=== PATIENT | female | born 1995 | race Caucasian/White ===

== ENCOUNTER 2019-04-02 13:30 | Outpatient (REF) | payer BC, SELFPAY ==
[2019-04-02 21:09] LABS: Abs Immature Grans 0.01 k/cumm (0.0-0.09); Absolute Basophil Count 0.04 k/cumm (0.0-0.2); Absolute Eosinophil Count 0.05 k/cumm (0.0-0.7); Absolute Lymphocyte Count 1.84 k/cumm (1.2-3.4); Absolute Monocyte Count 0.64 k/cumm (0.11-0.7); Absolute Neutrophil Count 5.34 k/cumm (1.2-6.7); Basophils % 0.5; Eosinophils % 0.6; HCT 40.4 % (36.0-46.0); HGB 13.7 g/dL (12.0-15.5); Immature Grans % 0.1; Lymphocytes % 23.2; Mean Corp. HGB Concentration 33.9 g/dL (32.0-36.0); Mean Corpuscular Volume 91.4 fL (80-95); Mean Platelet Volume 10.4 fL (8.0-11.0); Monocytes % 8.1; Neutrophils % 67.5; Platelet Count 321 x1000/uL (130-400); RBC 4.42 m/cumm (4.00-5.20); RBC Distribution Width 11.6 % (11.7-14.6); White Blood Cell Count 7.92 k/cumm (4.4-10.8)
[2019-04-02 21:51] LABS: Iron 128 ug/dL (50-175); Total Iron Binding Capacity 379 ug/dL (250-450); Transferrin Sat 34 % (15-50)
[2019-04-02 22:13] LABS: ESR 7 mm/hr (0-20)
[2019-04-02 22:22] LABS: TSH (W/Ref FT4) 0.66 uIU/mL (0.36-3.74); Vitamin B12 427 pg/mL (193-986)
[2019-04-05 15:36] LABS: ANA Interpretation Negative (NEGAT)
== END 2019-04-02 13:50 ==
LOC: NCHCN 13:30
PROVIDERS: PCP Nurse Practitioner Family; Visit Provider Nurse Practitioner Family
DX: Z00.00 Encounter for general adult medical examination without abnormal findings (principal); R20.8 Other disturbances of skin sensation; L70.9 Acne, unspecified; R41.3 Other amnesia; G43.909 Migraine, unspecified, not intractable, without status migrainosus; J30.2 Other seasonal allergic rhinitis; K58.9 Irritable bowel syndrome, unspecified
CPT/HCPCS: 85652; 82607; 83540; 83550; 84443; 85025; 86038

== ENCOUNTER 2020-03-24 16:08 | Outpatient (REF) | payer BC, SELFPAY ==
--- NOTE | 2020-03-24 14:45 | PAPFT_PTH ---
PATIENT: Kathy Rivera LOC: [facility] U#:[id number] AGE/SX: 24/F ROOM: RE03/24/[address]: JESSICA Lewis : 1995 BED: DIS: 03/24/2020 SPEC #: [id number] RECD: 03/24/20 17:30 STATUS: OBIE REQ #: [id number] MADINA: 03/24/20 14:[address]: Ny Dinh DEPT: [facility] Cytology RECD BY: Aracely Burr ENTERED: 03/24/20 17:31 SP TYPE: PAPFT OTHR DR: Haley Matthews Tissues: 1 - CX/ENDOCX FOR PAP SMEARS Procedures: PAP THIN PREP/[facility] Screening Comments: [id number]
[2020-03-27 15:11] LABS: Chlamydia Result Negative (Negative); GC Result Negative (Negative)
== END 2020-03-24 16:28 ==
LOC: LBN 16:08
PROVIDERS: PCP Nurse Practitioner Family; Visit Provider Nurse Practitioner Family
DX: Z12.4 Encounter for screening for malignant neoplasm of cervix (principal); Z87.42 Personal history of other diseases of the female genital tract; Z11.3 Encounter for screening for infections with a predominantly sexual mode of transmission
CPT/HCPCS: 87491; 87591; 88142

== ENCOUNTER 2020-04-28 10:16 | Outpatient (CLI) | payer BC, SELFPAY ==
[2020-04-28 17:40] LABS: TSH (W/Ref FT4) 0.55 uIU/mL (0.36-3.74)
== END 2020-04-28 10:36 ==
PROVIDERS: PCP Nurse Practitioner Family; Visit Provider Obstetrics & Gynecology
DX: Z31.69 Encounter for other general counseling and advice on procreation (principal); Z31.41 Encounter for fertility testing
CPT/HCPCS: 36415; 84443

== ENCOUNTER 2020-05-15 12:00 | Outpatient (CLI) | payer BC, SELFPAY ==
[2020-05-16 23:05] LABS: Patient Race White; SARS-CoV-2 RNA Undetected (Undetected); SARS-CoV-2 Specimen Source Nasal
== END 2020-05-15 12:20 ==
PROVIDERS: PCP Nurse Practitioner Family; Visit Provider Family Medicine
DX: Z20.828 Contact with and (suspected) exposure to other viral communicable diseases (principal)
CPT/HCPCS: U0003

== ENCOUNTER 2020-07-27 02:49 | Outpatient (CLI) | payer BC, SELFPAY ==
[2020-07-27 15:15] LABS: Abs Immature Grans 0.04 10^3/uL (0.0-0.06); Absolute Basophil Count 0.05 10^3/uL (0.0-0.2); Absolute Eosinophil Count 0.05 10^3/uL (0.0-0.7); Absolute Lymphocyte Count 1.72 10^3/uL (1.2-3.4); Absolute Monocyte Count 0.68 10^3/uL (0.1-0.8); Basophils % 0.5; Eosinophils % 0.5; HCT 35.3 % (36.0-46.0); HGB 12.6 g/dL (11.2-15.7); Immature Grans % 0.4; Lymphocytes % 15.7; MCH 31.7 pg (27.0-33.0); MCHC 35.7 % (32.0-36.0); MCV 88.9 fL (80-95); MPV 9.7 fL (8.0-11.0); Monocytes % 6.2; Neutrophils % 76.7; Nucleated RBC 0 %; Platelet Count 284 10^3/uL (130-400); RBC 3.97 10^6/uL (3.93-5.22); RDW 11.2 % (11.7-14.6); RDW-SD 36.3 fL; WBC 10.97 10^3/uL (4.4-10.8)
[2020-07-27 15:24] LABS: Absolute Neutrophil Count 8.41 10^3/uL (1.2-6.7)
[2020-07-27 15:47] LABS: TSH (W/Ref FT4) 0.42 uIU/mL (0.36-3.74)
[2020-07-27 16:16] LABS: Kit/Specimen SENT
[2020-07-27 17:23] LABS: *AMPHETAMINES SCREEN URINE Negative (Negative); *BARBITURATES SCREEN URINE Negative (Negative); *BENZODIAZEPINES SCREEN URINE Negative (Negative); Cannabinoids THC Negative (Negative); Cocaine Screen,Urine Negative (Negative); METHADONE URINE SCREEN Negative (Negative); OPIATES URINE SCREEN Negative (Negative)
[2020-07-27 17:27] LABS: Tricyclic Antidepressants Negative (Negative)
[2020-07-28 09:26] LABS: Rubella IgG Ab (UVM) Positive (See Note)
[2020-07-28 10:32] LABS: Hepatitis B Surface Ag Negative (Negative)
[2020-07-28 10:43] LABS: Hepatitis C Ab w Rflx HCV PCR Negative (Negative)
[2020-07-28 11:24] LABS: HIV-1/2 Ag & Ab Screen Negative (Negative)
[2020-07-28 11:42] LABS: Varicella IgG Antibody Equivocal (See Note)
[2020-07-28 16:25] LABS: Chlamydia Result Negative (Negative); GC Result Negative (Negative)
[2020-07-29 11:06] LABS: Syphilis Total Ab w/Reflex Nonreactive (Nonreactive)
[2020-08-02 09:07] LABS: Buprenorphine Negative ng/mL (Cutoff: 5.0); Norbuprenorphine Negative ng/mL (Cutoff: 2.5)
[2020-08-02 13:57] LABS: Specimen WB Whole Blood
[2020-08-03 09:58] LABS: Result Summary NEGATIVE; Specimen WB Whole Blood
== END 2020-07-27 02:50 | disposition home or self-care (01) ==
PROVIDERS: PCP Nurse Practitioner Family; Visit Provider Advanced Practice Midwife
DX: Z34.91 Encounter for supervision of normal pregnancy, unspecified, first trimester (principal); Z36.89 Encounter for other specified antenatal screening; Z11.3 Encounter for screening for infections with a predominantly sexual mode of transmission; Z11.4 Encounter for screening for human immunodeficiency virus [HIV]; Z11.59 Encounter for screening for other viral diseases; Z01.84 Encounter for antibody response examination; Z3A.11 11 weeks gestation of pregnancy
CPT/HCPCS: 36415; 80307; 81329; 86787; 86803; 86850; 86900; 86901; 87077; 87340; 87389; 87491; 87591; 81220; 84443; 85025; 86762; 86780; 87086; 87186

== ENCOUNTER 2020-09-22 16:50 | Outpatient (REF) | payer BC, SELFPAY | END 2020-09-22 16:51 | disposition home or self-care (01) | LOC: LBN 16:50 | PROVIDERS: PCP Nurse Practitioner Family; Visit Provider Advanced Practice Midwife | DX: Z34.92 Encounter for supervision of normal pregnancy, unspecified, second trimester (principal); Z87.440 Personal history of urinary (tract) infections | CPT/HCPCS: 87086 ==

== ENCOUNTER 2020-10-20 16:00 | Outpatient (REF) | payer BC, SELFPAY | END 2020-10-20 16:01 | disposition home or self-care (01) | LOC: LBN 16:00 | PROVIDERS: PCP Nurse Practitioner Family; Visit Provider Advanced Practice Midwife | DX: Z87.440 Personal history of urinary (tract) infections (principal); Z34.92 Encounter for supervision of normal pregnancy, unspecified, second trimester | CPT/HCPCS: 87086 ==

== ENCOUNTER 2020-11-17 01:04 | Outpatient (CLI) | payer BC, SELFPAY ==
[2020-11-17 14:18] LABS: Glucose,1 Hr (Glucola) 114 mg/dL (80-140)
[2020-11-17 14:23] LABS: HCT 30.5 % (36.0-46.0); HGB 10.8 g/dL (11.2-15.7); MCH 31.5 pg (27.0-33.0); MCHC 35.4 % (32.0-36.0); MCV 88.9 fL (80-95); MPV 9.1 fL (8.0-11.0); Platelet Count 275 10^3/uL (130-400); RBC 3.43 10^6/uL (3.93-5.22); RDW 11.2 % (11.7-14.6); RDW-SD 36.1 fL; WBC 9.55 10^3/uL (4.4-10.8)
== END 2020-11-17 01:05 | disposition home or self-care (01) ==
LOC: LBO 01:04
PROVIDERS: PCP Nurse Practitioner Family; Visit Provider Advanced Practice Midwife
DX: Z34.92 Encounter for supervision of normal pregnancy, unspecified, second trimester (principal); Z3A.27 27 weeks gestation of pregnancy
CPT/HCPCS: 36415; 82950; 85027

== ENCOUNTER 2021-01-12 17:52 | Outpatient (REF) | payer BC, SELFPAY ==
[2021-01-12 19:39] LABS: *AMPHETAMINES SCREEN URINE Negative (Negative); *BARBITURATES SCREEN URINE Negative (Negative); *BENZODIAZEPINES SCREEN URINE Negative (Negative); Cannabinoids THC Negative (Negative); Cocaine Screen,Urine Negative (Negative); METHADONE URINE SCREEN Negative (Negative); OPIATES URINE SCREEN Negative (Negative)
[2021-01-12 19:41] LABS: Tricyclic Antidepressants Negative (Negative)
[2021-01-18 10:11] LABS: Buprenorphine Negative ng/mL (Cutoff: 5.0)
== END 2021-01-12 17:53 | disposition home or self-care (01) ==
LOC: LBN 17:52
PROVIDERS: PCP Nurse Practitioner Family; Visit Provider Advanced Practice Midwife
DX: Z34.93 Encounter for supervision of normal pregnancy, unspecified, third trimester (principal); Z3A.35 35 weeks gestation of pregnancy
CPT/HCPCS: 80307

== ENCOUNTER 2021-01-19 15:15 | Outpatient (CLI) | payer BC, SELFPAY ==
[2021-01-19 15:29] VITALS: BP 104/60; PULSE 58; RESP 16; TEMP 36.8
[2021-01-19 15:31] VITALS: BP 104/60; PULSE 58
[2021-01-19 15:55] LABS: COMMENT (LAB VIEW ONLY) 19.69 mg/dL; PROTEIN < 6.0 mg/dL
[2021-01-19 16:11] VITALS: BP 104/60; PULSE 58; TEMP 36.8
[2021-01-19 16:29] VITALS: BP 104/60; PULSE 58; TEMP 36.8
--- NOTE | 2021-01-19 16:29 | W.OBNST ---
Date of service: 01/19/21 Time of Service: 16:29 NST Evaluation Reason for NST Reasons for Nonstress Test: DECREASED MOVEMENT Gestational Age Gestational Age in Weeks and Days: 36 Weeks and 4Days Test and Monitor Explained Test/Monitor Explained: Test Explained, Monitor Explained and Patient Verbalized Understanding Vital Signs Blood Pressure: 104/60 Pulse: 58 Temperature: 98.2 F Urine Results Urine Protein: Negative Urine Ketones: Negative Urine Glucose: Negative Urine Blood: Negative NST Information Date on Monitor: 01/19/21 Time on Monitor: 15:24 Date off Monitor: 01/19/21 Time off Monitor: 15:58 Total Time on Monitor: 34 NST Interventions: None NST Evaluation Patient States Movement: Present FHR Baseline: 130 Variability: Moderate 6-25 bpm Accelerations: 15x15 Decelerations: None NST Results: Reactive Note NST Note Note: BP was 104/60, urine negative for protein NST Reviewed and Verified by: Dorys Ramirez
== END 2021-01-19 16:19 | disposition home or self-care (01) ==
LOC: BCD 15:16 → OBS 15:22
PROVIDERS: Advanced Practice Midwife; PCP Nurse Practitioner Family; Visit Provider Advanced Practice Midwife
DX: O16.3 Unspecified maternal hypertension, third trimester (principal); O36.8130 Decreased fetal movements, third trimester, not applicable or unspecified; Z3A.36 36 weeks gestation of pregnancy; Z36.85 Encounter for antenatal screening for Streptococcus B
CPT/HCPCS: 59025; 82565; 84156; 87081

== ENCOUNTER 2021-01-24 16:42 | Outpatient (REF) | payer BC, SELFPAY | END 2021-01-24 16:43 | disposition home or self-care (01) | LOC: LBN 16:42 | PROVIDERS: PCP Nurse Practitioner Family; Visit Provider Advanced Practice Midwife | DX: N89.8 Other specified noninflammatory disorders of vagina (principal) | CPT/HCPCS: 87480; 87510; 87660 ==

== ENCOUNTER 2021-02-01 01:02 | Inpatient (IN) | payer BC, SELFPAY ==
[2021-02-01] VITALS (17 sets, daily range): BP systolic 112–146; BP diastolic 59–88; PULSE 57–97; RESP 14–18; TEMP 36.4–37.2; O2SAT 97–99
[2021-02-01 02:16] LABS: Source Nasal/Nares
[2021-02-01 03:02] LABS: COVID-19 PCR Negative (Negative)
--- NOTE | 2021-02-01 07:50 | W.PM.OBHPL1 ---
Date of service: 02/01/21 Time of Service: 07:50 Assessment and Plan Assessment and plan (1) Spontaneous onset of labor: Status: Acute Assessment and plan: Admit to Center. Comfort measures. Covid- 19 test. AROM performed for moderate amount of clear fluid. Position changes for comfort and tub and nitrous oxide if desired. Anticipate . (2) Susceptible to varicella (non-immune), currently : Status: Acute OB-HPI Labor/Delivery History of Present Illness Reason for Visit: Rule out labor Chief Complaint: Uterine Contractions. DENILSON Calculator Estimated Delivery Date Method Current WG Current Estimate 02/12/21 LMP (Certain) 38w 3d Other Estimates 02/14/21 Ultrasound #1 38w 1d Comments: Kathy called at 0054 and reported strong regular contractions and bloody show. She was examined by RN and was 3 cms and posterior when she arrived. She used various positions and the tub and shower for comfort and her contractions continued through the night but did not change in intensity. At 0700, I examined her and her cervix was 6 cms with bulging membranes. She was coping well with her labor but complaining of fatigue. History of Present Expected Delivery Route/Plan - CNM FOB/ - Cm Rivera (his first child) GBS neg Interested in using water in labor and waterbirth Varicella Equivocal, offer vaccine Doesn't wish to know gender, if male will circ Specific Issues/Plan 1.Desires [place] screening, CF and SMA carrier screening, drawn 07/27/20 1a. SMA & CF screen negative; [place] results low prob x3 2. Hx migraine SHARP's, manages by decreased caffeine intake, tylenol, dark room/nap/cold compress 3. Hx IBS, no symptoms right now, no meds, avoids lactose and gluten 4. Varicellla immunity=equivocal; discuss precautions and vaccine with pt 5. UTI - e.coli- Macrobid x 10 days escribed, KAMALA on 09/22/20 no e-coli, 5/7 - neg. 6. Kathy declines covid vaccine, her is undecided. [facility] Medical History (Updated 02/01/21 @ 07:54 by Majo Robert CNM) 11 weeks gestation of Acne Cold hands Contact dermatitis IBS (irritable bowel syndrome) Memory loss Migraine aura without headache Migraine headache Migraine headache with aura Positive test Seasonal allergies Subfertility of couple Family History Father Hypertension Mother Hypertension Maternal Grandmother Endometrial cancer Paternal Grandmother Endometrial cancer Maternal Grandfather Heart disease Social History Smoking/Tobacco Use Status: Never Smoking risk assessment performed?: Yes Alcohol Intake: current Alcohol Intake frequency: a few times a month Number of Children: 0 What is your relationship status?: living with partner Panel score (0-1 are the most socially isolated patients): 1 Seatbelt use: always Do you feel safe in your relationship?: Yes Female Reproductive History Menstrual Age of Menarche: 11 Duration of menses: 3-5 days control method: none History History 1 Para 0 Hx # Term Pregnancies 0 Multiple births 0 Hx # Pregnancies 0 Ectopic pregnancies 0 AB induced 0 Hx Number of Living Children 0 AB spontaneous 0 Meds Allergies and Home Medications Allergies Allergy/AdvReac Type Severity Reaction Status Date / Time No Known Allergies Allergy Verified 01/24/21 15:27 Home Medications Medication Instructions Recorded Confirmed Type clindamycin 1 %-benzoyl peroxide 5 1 applic TP DAILY 04/22/19 02/01/21 History % topical gel loperamide 2 mg tablet 2 mg PO DAILY tab 04/22/19 02/01/21 History prenat.vits,liu,wqa-allt-acahc 1 tab PO DAILY 03/24/20 02/01/21 History blood builder 1 tab PO DAILY #30 tab 12/14/20 02/01/21 Rx Exam Physical Exam Vital signs: Temp Pulse Resp BP Pulse Ox 98.2 F 78 16 112/70 98 02/01/21 07:05 02/01/21 07:05 02/01/21 07:05 02/01/21 07:05 02/01/21 07:05 Vital Signs Reviewed: Yes Constitutional Constitutional: mild distress Detailed Labor and Delivery Exam Dilation: 6 Effacement (%): 100 station: 0 Cervix position: mid Consistency: soft Marquis Score: Cervical Points Exam 0 1 2 3 Dilation Closed 1-2cm 3-4 cm 5-6cm Effacement 0-30% 40-50% 60-70% 80% Consistency Firm Medium Soft Station -3 -2 -1,0 +1,+2 Position Posterior Mid Anterior Amniotic Membrane Status: Intact Rupture Method: Artifical Amniotic Fluid: Clear Monitor Mode: External Contraction Frequency(min): every 4 minutes Contraction Duration(sec): 60 Contraction Intensity: Moderate/Strong Fetus A Heart Rate Baseline: 135 Monitor Decelerations: None Categories: Category I Respiratory Exam Respiratory Exam: Normal Cardiovascular Exam Cardiovascular Exam: Normal Abdominal Exam Abdominal Exam: Normal Exam Exam: Normal Extremities Exam Extremities Exam: Normal Back/Spine/Pelvis Exam Back Exam: Normal Skin Exam Skin Exam: Normal Psychiatric Exam Psychiatric Exam: Normal Results Results Group Beta Strep: Negative Blood Type: O+ Rubella Status: Immune Varicella Immunity: Equivocal Risk Assessment Risk for Shoulder Dystocia Historical/Initial OB: NEGATIVE FOR: Pelvic Abnormality, Pre- BMI>30, Previous Shoulder Dystocia or Previous Macrosomia 40 Weeks: NEGATIVE FOR: EFW> 4500 gms, Maternal Weight Gain >40lb or Post Dates Increased Risk?: No Delivery Plan @ 36wks: NVD Risk for Pre-Eclampsia Daily Dose ASA Indicated: No Yes, if one or more: NEGATIVE FOR: Hx Pre-E/Gest HTN, Chronic HTN, Multiple Gestation, Pre-gestational DM, Renal Disease, Systemic Lupus or APA Syndrome Yes, if 2 or more: POSITIVE FOR: Nulliparity; NEGATIVE FOR: Age>= 35 yrs, >10yr btwn pregnancies, BMI>30, ethinicty, Mother/Sister w/ Pre-E or Previous IUGR Risk for Post- Hemorrhage Initial: NEGATIVE FOR: Multiple Gestation, Previous PPH, Known Clotting Deficiency, Grand Multiparity or Anticoagulation At Risk?: No Risks Reviewed Risks Reviewed Upon Admission: Yes
[2021-02-01 08:00] LABS: HGB 12.2 g/dL (11.2-15.7); MCH 29.5 pg (27.0-33.0); MCHC 33.9 % (32.0-36.0); MCV 87.2 fL (80-95); MPV 9.7 fL (8.0-11.0); Platelet Count 281 10^3/uL (130-400); RBC 4.13 10^6/uL (3.93-5.22); RDW 12.8 % (11.7-14.6); RDW-SD 40.3 fL; WBC 13.71 10^3/uL (4.4-10.8)
[2021-02-01] MEDS: Oxytocin 10 UNITS/ML VIAL IM (09:35)
[2021-02-01] MEDS: Lidocaine 1% Multi-Dose 20 ML VIAL IJ (09:35)
--- NOTE | 2021-02-01 10:30 | W.OBDELIVERY ---
Date of service: 02/01/21 Time of Service: 10:30 OB Labor/ Delivery Information Baby A Delivery Delivery Method: Spontaneaous Presentation: Cephalic Vertex Position: Right Occipital Anterior Cord Description-Baby A: 3 Vessels Amniotic Fluid: Clear Estimated Blood Loss: 250 Delivery Outcome: Liveborn Providers Nurse Interactive Account Manager: Majo Robert Nurse: Hector Rojo Nurse: Joby Dunne Other: Thais SAMUEL Labor/Delivery Information Number of Babies in Womb: 1 Steroids Given: None Group Beta Strep: Negative Antibiotics Administered: No Rubella Status: Immune Blood Type: O+ Varicella Immunity: Equivocal Born En Route: No Maternal Complications: None Shoulder Dystocia: No Note: Membranes were ruptured at 6 cms and Kathy progressed rapidly to full dilationan and began pushing in the tub. FHTs 130s during first stage of labor. FHTs 130s in second stage. Second stage huddle was done. With pushing efforts, the baby began to crown but did progress to full . Kathy was moved to the bed and in hands and knees position, delivered the male infant delivered in RUDY position. Baby was placed on mother's abdomen and dried and stimulated. Spontaneous cry. Cord was clamped and cut by the baby's father. The placenta delivered spontaneously and appears to be intact with a three vessel cord. Pitocin 10 units IM was administered after delivery of the placenta. The perineum was inspected and a first degree laceration and left upper labial laceration was observed. The baby did attempt to breastfeed. After delivery, Mother and baby and father of the baby were stable and bonding well in the delivery room and there were no complications. Stages of Labor Onset of Labor Date: 01/31/21 Onset of Labor Time: 20:00 Complete Dilatation Date: 02/01/21 Complete Dilatation Time: 08:28 Labor - Stage 1 Duration: 24 hours and 0 minutes ROM Baby A: 02/01/21 Delivery Date-Baby A: 02/01/21 Infant Delivery Time-Baby A: 09:26 Labor Stage 2 Duration: 58 minutes Placenta Delivery Date-Baby A: 02/01/21 Placenta Delivery Time-Baby A: 09:34 Labor-Stage 3 Duration: 8 minutes Total Length of Labor-Baby A: 13 hours and 26 minutes Placenta Status: Delivered Baby A Infant Gender: Male Gestational Status: Early Term (37-38.6 wks) Gestational Age in Weeks/Days: 38 Weeks and 3 Days Score-1 Minute Interval(Baby A) Heart Rate-1 minute: 100 BPM or Greater Respiratory Effort- 1 minute: Spontaneous/Strong Cry Muscle Tone-1 minute: Active Movement Reflex Response-1 minute: Prompt Response Color-1 minute: Bluish Hands or Feet Total Score-1 minute: 9 Score-5 Minute Interval(Baby A) Heart Rate- 5 minute: 100 BPM or Greater Respiratory Effort-5 minute: Spontaneous/Strong Cry Muscle Tone-5 minute: Active Movement Reflex Response-5 minute: Prompt Response Color-5 minute: Bluish Hands or Feet Total Score- 5 minute: 9 Interventions Repair of Laceration Type: Perineal , Laceration Extension: First Degree . Sponge Count Correct: No Sponges Placed in Vagina , Sharp Count Correct: Yes . Laceration Repair Note: left upper labial laceration repaired with 4-0 vicryl interrupted sutures under local anesthetic.
[2021-02-01] MEDS: Acetaminophen 325 MG TAB 650 MG PO ×2 (11:42→18:13)
[2021-02-01] MEDS: Ibuprofen 600 MG TAB PO ×2 (11:43→18:12)
[2021-02-01] MEDS: Dibucaine 1% 28 GM TUBE TP (11:44)
[2021-02-02 00:05] VITALS: BP 137/84; PULSE 67; RESP 18; TEMP 36.6
[2021-02-02] MEDS: Ibuprofen 600 MG TAB PO ×2 (05:34→15:36)
[2021-02-02] MEDS: Acetaminophen 325 MG TAB 650 MG PO ×2 (05:34→15:36)
[2021-02-02 07:25] VITALS: BP 120/79; PULSE 94; RESP 16; TEMP 36.6; O2SAT 98
[2021-02-02 07:25] LABS: HCT 33.3 % (36.0-46.0); HGB 11.3 g/dL (11.2-15.7); MCH 29.5 pg (27.0-33.0); MCHC 33.9 % (32.0-36.0); MCV 86.9 fL (80-95); MPV 9.8 fL (8.0-11.0); Platelet Count 265 10^3/uL (130-400); RBC 3.83 10^6/uL (3.93-5.22); RDW 13.2 % (11.7-14.6); RDW-SD 41.4 fL; WBC 12.67 10^3/uL (4.4-10.8)
[2021-02-02] MEDS: Docusate Sodium 100 MG CAP PO (08:12)
[2021-02-02 12:20] VITALS: BP 125/82; PULSE 64; RESP 16; TEMP 36.6; O2SAT 97
--- NOTE | 2021-02-02 14:14 | DSE_ITS ---
Date of service: 02/02/21 Time of Service: 14:15 DS: Diagnosis Discharge Diagnosis (1) Susceptible to varicella (non-immune), currently : Status: Acute Asessment and Plan: offer varicella vaccine prior to discharge. (2) Term of : Status: Acute Asessment and Plan: Caring for baby independently. Pain is managed well with oral analgesics. Voiding without difficulty. well. Baby was 6-1 at with 3.8% weight loss. The managed care manager recommends an additional day of observation. Kathy feels well. A - stable mother and baby , Post day 1 P - Discharge to home tomorrow. Routine post instructions. [facility] Discharge Plan Discharge Details Reason For Visit: Rule Out Labor Admit Date/Time: 02/01/21 07:38 Admit Provider: Majo Robert Attending Provider: Majo Robert Primary Care Provider: Haley Matthews Home Meds and New Rx's Prescriptions: No Action prenat.vits,liu,ylf-wzli-hhqie Tablet 1 tab PO DAILY RF: 0 blood builder 1 tab PO DAILY Qty: 30 RF: 0 loperamide [Imodium A-D] 2 mg tablet 2 mg PO DAILY RF: 0 clindamycin-benzoyl peroxide [Benzaclin] 1-5 % gel 1 applic TP DAILY RF: 0 OB:DS Summary Summary Vaginal Delivery Method: Spontaneaous Episiotomy Description: None Laceration Description: Perineal Laceration Extension: First Degree Contraception Discussed Contraception Discussed: No, Gender-Baby A: Male weight: 6 lb 1.003 oz Status at Discharge Functional status at discharge: independent ambulation Overall status at discharge: patient is back to baseline Mental Status: mental status grossly normal Speech and Movement: speech and movement normal Mood: congruent mood Affect: normal affect Exam Physical Exam Vital signs: Temp Pulse Resp BP Pulse Ox 97.9 F 64 16 125/82 97 02/02/21 12:20 02/02/21 12:20 02/02/21 12:20 02/02/21 12:20 02/02/21 12:20 Constitutional Constitutional: no acute distress Respiratory Exam Respiratory Exam: Normal Cardiovascular Exam Cardiovascular Exam: Normal Fundal Exam Fundus: Below Umbilicus and Firm Rectal Exam Rectal Exam: Normal Extremities Exam Extremity Exam: Normal Back/Spine/Pelvis Exam Back Exam: Normal Skin Exam Skin Exam: Normal Psychiatric Exam Psychiatric Exam: Normal [facility] Medical History (Updated 02/02/21 @ 14:15 by Majo Robert CNM) 11 weeks gestation of Acne Cold hands Contact dermatitis IBS (irritable bowel syndrome) Memory loss Migraine aura without headache Migraine headache Migraine headache with aura Positive test Seasonal allergies Subfertility of couple Family History Father Hypertension Mother Hypertension Maternal Grandmother Endometrial cancer Paternal Grandmother Endometrial cancer Maternal Grandfather Heart disease Social History Smoking/Tobacco Use Status: Never Smoking risk assessment performed?: Yes Alcohol Intake: current Alcohol Intake frequency: a few times a month Number of Children: 0 What is your relationship status?: living with partner Panel score (0-1 are the most socially isolated patients): 1 Seatbelt use: always Do you feel safe in your relationship?: Yes Female Reproductive History Menstrual Age of Menarche: 11 Duration of menses: 3-5 days control method: none History History 1 Para 0 Hx # Term Pregnancies 0 Multiple births 0 Hx # Pregnancies 0 Ectopic pregnancies 0 AB induced 0 Hx Number of Living Children 0 AB spontaneous 0 DS: Data Vitals/I&O Vitals and I&O: Vital Signs Temperature 97.9 F 02/02/21 12:20 Pulse 64 02/02/21 12:20 Pulse Rhythm Regular 02/02/21 07:25 Respiratory Rate 16 02/02/21 12:20 Respiratory Effort 02/01/21 20:40 Respiratory Depth Normal 02/01/21 20:40 Respiratory Pattern Normal 02/01/21 20:40 Blood Pressure 125/82 02/02/21 12:20 Blood Pressure Mean 96 02/02/21 12:20 Pulse Oximetry 97 02/02/21 12:20 Oxygen Delivery Method Room Air 02/01/21 07:05 Oxygen Flow Rate 0 02/01/21 07:05 Pain Level 2 02/02/21 12:20 Intake & Output 02/01/21 02/02/21 02/02/21 23:59 11:59 23:59 Intake Total 1000 / 1500 Output Total 2050 / 2450 600 / 600 Balance -1050 / -950 -600 / -600 Intake: Oral 1000 / 1500 Output: Urine 2050 / 2450 600 / 600 Other: Urine Color Pale Pale Urine Appearance Clear Clear Urine Odor None Comment Patient attempted to void, was unable at this time did take shower Voiding Methods Toilet Toilet Data Completed and Pending Labs on day of discharge: Labs from last 24 hours 02/02/21 07:08 WBC 12.67 H RBC 3.83 L Hgb 11.3 Hct 33.3 L MCV 86.9 MCH 29.5 MCHC 33.9 RDW 13.2 Plt Count 265 MPV 9.8
[2021-02-02 16:45] VITALS: BP 123/80; PULSE 74; RESP 16; TEMP 36.7; O2SAT 98
[2021-02-03 00:11] VITALS: BP 128/83; PULSE 69; RESP 18; TEMP 36.7; O2SAT 98
[2021-02-03] MEDS: Ibuprofen 600 MG TAB PO (04:26)
[2021-02-03] MEDS: Acetaminophen 325 MG TAB 650 MG PO (04:27)
[2021-02-03 07:10] VITALS: BP 127/85; PULSE 82; RESP 16; TEMP 36.7; O2SAT 98
[2021-02-03] MEDS: Docusate Sodium 100 MG CAP PO (07:55)
--- NOTE | 2021-02-03 08:05 | W.PM.OBDISCH ---
Date of service: 02/03/21 Time of Service: 08:05 DS: Diagnosis Discharge Diagnosis (1) Susceptible to varicella (non-immune), currently : Start date: 02/03/21 Start time: 08:06 Status: Acute Asessment and Plan: will offer VZV vaccine prior to discharge. AROLDO (2) Term of : Start date: 02/03/21 Start time: 08:06 Status: Acute Asessment and Plan: Healthy course, will return to office in 2 weeks.KH (3) Lactating mother: Start date: 02/03/21 Start time: 08:07 Status: Acute Asessment and Plan: Feels breast feeding is going well now, has good plan for positions and latch. Has worked with Christiane AZUL and has pediatric follow up in 2 days as well as [facility] follow up in 2 weeks. Discharge Plan Disposition Patient Disposition: HOME Condition: Good Discharge Details Reason For Visit: Rule Out Labor Admit Date/Time: 02/01/21 07:38 Admit Provider: Majo Robert Attending Provider: Majo Robert Primary Care Provider: Haley Matthews Hospital Course Hospital Course: normal labor and delivery of live male. Breast feeding going well. Normal course to date. Plans progesterone only pills at 6 weeks . Home Meds and New Rx's Prescriptions: New ibuprofen 600 mg Tablet 600 mg PO Q6H PRN PRNQty: 90 RF: 0 Continued prenat.vits,liu,nvw-dqdy-nvfmn Tablet 1 tab PO DAILY RF: 0 blood builder 1 tab PO DAILY Qty: 30 RF: 0 loperamide [Imodium A-D] 2 mg tablet 2 mg PO DAILY RF: 0 clindamycin-benzoyl peroxide [Benzaclin] 1-5 % gel 1 applic TP DAILY RF: 0 Discharge Instructions Activity:: Activity as Tolerated Equipment/Supplies:: No Equipment Needed Diet:: As Tolerated Discharge Orders Discharge Orders: Discharge Order (Routine); Ordered 02/03/21 Ordered By: Majo Baez OB:DS Summary Summary Vaginal Delivery Method: Spontaneaous Episiotomy Description: None Laceration Description: Perineal Laceration Extension: First Degree Contraception Discussed Contraception Discussed: No, Gender-Baby A: Male weight: 6 lb 1.003 oz Status at Discharge Functional status at discharge: independent ambulation Overall status at discharge: patient is back to baseline Mental Status: mental status grossly normal Speech and Movement: speech and movement normal Mood: congruent mood Affect: normal affect Exam Physical Exam Vital signs: Temp Pulse Resp BP Pulse Ox 98.1 F 69 18 128/83 98 02/03/21 00:11 02/03/21 00:11 02/03/21 00:11 02/03/21 00:11 02/03/21 00:11 Vital Signs Reviewed: Yes Constitutional Constitutional: no acute distress and average body habitus HEENT Exam HEENT Exam: Normal Neck Exam Neck Exam: Not Done Breast Exam Bilateral: Breast Exam: Normal Nipple Exam: Normal Respiratory Exam Respiratory Exam: Normal Cardiovascular Exam Cardiovascular Exam: Normal Fundal Exam Fundus: Below Umbilicus and Firm Rectal Exam Rectal Exam: Not Done Exam Patient deferred: external exam Perineum: Normal Extremities Exam Extremity Exam: Normal Skin Exam Skin Exam: Normal Neurological Exam Neurological Exam: Normal Psychiatric Exam Psychiatric Exam: Normal [facility] Medical History (Updated 02/03/21 @ 08:06 by Majo Baez CNM) 11 weeks gestation of Acne Cold hands Contact dermatitis IBS (irritable bowel syndrome) Memory loss Migraine aura without headache Migraine headache Migraine headache with aura Positive test Seasonal allergies Subfertility of couple Family History Father Hypertension Mother Hypertension Maternal Grandmother Endometrial cancer Paternal Grandmother Endometrial cancer Maternal Grandfather Heart disease Social History Smoking/Tobacco Use Status: Never Smoking risk assessment performed?: Yes Alcohol Intake: current Alcohol Intake frequency: a few times a month Number of Children: 0 What is your relationship status?: living with partner Panel score (0-1 are the most socially isolated patients): 1 Seatbelt use: always Do you feel safe in your relationship?: Yes Female Reproductive History Menstrual Age of Menarche: 11 Duration of menses: 3-5 days control method: none History History 1 Para 0 Hx # Term Pregnancies 0 Multiple births 0 Hx # Pregnancies 0 Ectopic pregnancies 0 AB induced 0 Hx Number of Living Children 0 AB spontaneous 0 DS: Data Vitals/I&O Vitals and I&O: Vital Signs Temperature 98.1 F 02/03/21 00:11 Pulse 69 02/03/21 00:11 Pulse Rhythm Regular 02/03/21 00:11 Respiratory Rate 18 02/03/21 00:11 Respiratory Effort 02/01/21 20:40 Respiratory Depth Normal 02/01/21 20:40 Respiratory Pattern Normal 02/01/21 20:40 Blood Pressure 128/83 02/03/21 00:11 Blood Pressure Mean 98 02/03/21 00:11 Pulse Oximetry 98 02/03/21 00:11 Oxygen Delivery Method Room Air 02/01/21 07:05 Oxygen Flow Rate 0 02/01/21 07:05 Pain Level 4 02/03/21 04:27 Intake & Output 02/02/21 02/02/21 02/03/21 11:59 23:59 11:59 Output Total 600 / 600 Balance -600 / -600 Output: Urine 600 / 600 Other: Urine Color Pale Urine Appearance Clear Voiding Methods Toilet
== END 2021-02-03 12:05 | disposition home or self-care (01) | DRG 807 ==
PROVIDERS: Admitting Provider Advanced Practice Midwife; PCP Nurse Practitioner Family; Visit Provider Advanced Practice Midwife
DX: O99.62 Diseases of the digestive system complicating childbirth (principal); Z37.0 Single live birth; O99.354 Diseases of the nervous system complicating childbirth; O70.0 First degree perineal laceration during delivery; Z3A.38 38 weeks gestation of pregnancy; K58.9 Irritable bowel syndrome, unspecified; G43.109 Migraine with aura, not intractable, without status migrainosus; Z20.822 Contact with and (suspected) exposure to COVID-19
CPT/HCPCS: 36415; 85027; 86850; 86900; 86901; 87635; G0378; J2590; J3490

== ENCOUNTER 2022-06-28 01:19 | Outpatient (CLI) | payer BC, SELFPAY ==
[2022-06-28 16:03] LABS: Panorama Kit Sent via Fed Ex
[2022-06-28 16:06] LABS: Abs Immature Grans 0.05 10^3/uL (0.0-0.06); Absolute Eosinophil Count 0.05 10^3/uL (0.0-0.7); Absolute Lymphocyte Count 2.33 10^3/uL (1.2-3.4); Absolute Monocyte Count 0.66 10^3/uL (0.1-0.8); Basophils % 0.3; Eosinophils % 0.4; HCT 34.8 % (36.0-46.0); HGB 12.2 g/dL (11.2-15.7); Immature Grans % 0.4; MCH 30.1 pg (27.0-33.0); MCHC 35.1 % (32.0-36.0); MCV 86 fL (80-95); MPV 9.2 fL (8.0-11.0); Monocytes % 5.7; Neutrophils % 73.2; Platelet Count 337 10^3/uL (130-400); RBC 4.05 10^6/uL (3.93-5.22); RDW 11.2 % (11.7-14.6); RDW-SD 35.6 fL; WBC 11.66 10^3/uL (4.4-10.8)
[2022-06-28 16:07] LABS: Absolute Basophil Count 0.03 10^3/uL (0.0-0.2); Absolute Neutrophil Count 8.54 10^3/uL (1.2-6.7)
[2022-07-01 09:13] LABS: Hepatitis B Surface Ag Negative (Negative)
[2022-07-01 09:32] LABS: Hepatitis C Ab w Rflx HCV PCR Negative (Negative)
[2022-07-01 10:52] LABS: HIV-1/2 Ag & Ab Screen Negative (Negative)
[2022-07-01 11:08] LABS: Rubella IgG Ab (UVM) Positive (See Note); Varicella IgG Antibody Positive (See Note)
[2022-07-02 20:37] LABS: Syphilis IgG w/Reflex Nonreactive (Nonreactive)
== END 2022-06-28 01:20 | disposition home or self-care (01) ==
LOC: LBO 01:19
PROVIDERS: PCP Nurse Practitioner Family; Visit Provider Advanced Practice Midwife
DX: Z34.91 Encounter for supervision of normal pregnancy, unspecified, first trimester
CPT/HCPCS: 36415; 86787; 86803; 86850; 86900; 86901; 87340; 87389; 85025; 86762; 86780

== ENCOUNTER 2022-06-28 17:21 | Outpatient (REF) | payer BC, SELFPAY ==
[2022-07-05 10:11] LABS: Buprenorphine Negative ng/mL (Cutoff: 5.0); Norbuprenorphine Negative ng/mL (Cutoff: 2.5)
== END 2022-06-28 17:22 | disposition home or self-care (01) ==
LOC: LBN 17:21
PROVIDERS: PCP Nurse Practitioner Family; Visit Provider Advanced Practice Midwife
DX: Z34.91 Encounter for supervision of normal pregnancy, unspecified, first trimester (principal)
CPT/HCPCS: 80348

== ENCOUNTER 2022-07-25 17:04 | Outpatient (REF) | payer BC, SELFPAY ==
[2022-07-25 17:35] LABS: *AMPHETAMINES SCREEN URINE Negative (Negative); *BARBITURATES SCREEN URINE Negative (Negative); *BENZODIAZEPINES SCREEN URINE Negative (Negative); Cannabinoids THC Negative (Negative); Cocaine Screen,Urine Negative (Negative); METHADONE URINE SCREEN Negative (Negative); OPIATES URINE SCREEN Negative (Negative)
[2022-07-25 17:36] LABS: Tricyclic Antidepressants Negative (Negative)
[2022-07-27 12:48] LABS: Chlamydia Result Negative (Negative); GC Result Negative (Negative)
== END 2022-07-25 17:05 | disposition home or self-care (01) ==
LOC: LBN 17:04
PROVIDERS: PCP Nurse Practitioner Family; Visit Provider Advanced Practice Midwife
DX: Z34.92 Encounter for supervision of normal pregnancy, unspecified, second trimester (principal); Z3A.14 14 weeks gestation of pregnancy
CPT/HCPCS: 80307; 87491; 87591

== ENCOUNTER 2022-08-09 01:51 | Outpatient (CLI) | payer BC, SELFPAY ==
[2022-08-14 14:36] LABS: AFP 38.5 ng/mL; Calculated age at EDD 26 years; Cigarette smoking status non-Smoker; GA used in risk estimate Scan estimate; IVF Pregnancy No; Initial or repeat testing Initial testing; Insulin dependent diabetes No; Maternal Weight 149 lbs; Number of Fetuses 1; Physician Phone Number 802-748-7300; Prev Pregnancy w/NTD No; RECOMMENDED FOLLOW UP None.; Results Summary Normal risk
== END 2022-08-09 01:52 | disposition home or self-care (01) ==
LOC: LBO 01:51
PROVIDERS: Advanced Practice Midwife; PCP Nurse Practitioner Family; Visit Provider Advanced Practice Midwife
DX: Z34.92 Encounter for supervision of normal pregnancy, unspecified, second trimester (principal)
CPT/HCPCS: 36415; 82105

== ENCOUNTER 2022-10-29 02:53 | Outpatient (CLI) | payer BC, SELFPAY ==
[2022-10-29 15:20] LABS: HCT 31.8 % (36.0-46.0); HGB 11.2 g/dL (11.2-15.7); MCH 30.1 pg (27.0-33.0); MCHC 35.2 % (32.0-36.0); MCV 86 fL (80-95); Platelet Count 303 10^3/uL (130-400); RBC 3.72 10^6/uL (3.93-5.22); RDW 11.9 % (11.7-14.6); RDW-SD 37.2 fL; WBC 9.46 10^3/uL (4.4-10.8)
[2022-10-29 15:27] LABS: Glucose,1 Hr (Glucola) 115 mg/dL (80-140)
== END 2022-10-29 02:54 | disposition home or self-care (01) ==
LOC: LBO 02:53
PROVIDERS: PCP Nurse Practitioner Family; Visit Provider Advanced Practice Midwife
DX: Z34.93 Encounter for supervision of normal pregnancy, unspecified, third trimester (principal); Z3A.27 27 weeks gestation of pregnancy
CPT/HCPCS: 36415; 82950; 85027

== ENCOUNTER 2022-12-12 12:14 | Outpatient (CLI) | payer BC, SELFPAY ==
[2022-12-12 12:58] VITALS: BP 119/70; PULSE 68; TEMP 36.5
--- NOTE | 2022-12-12 13:53 | W.OBNST ---
Date of service: 12/12/22 Time of Service: 13:53 NST Evaluation Reason for NST Reasons for Nonstress Test: OTHER, SEE COMMENT Reason for NST Other: C/O nausea,diarrhea,contractions. Gestational Age Gestational Age in Weeks and Days: 34 Weeks and 1Days Test and Monitor Explained Test/Monitor Explained: Test Explained, Monitor Explained and Patient Verbalized Understanding Vital Signs Blood Pressure: 119/70 Pulse: 68 Temperature: 97.7 F Urine Results Urine Protein: Negative Urine Ketones: Negative Urine Glucose: Negative Urine Blood: Negative NST Information Date on Monitor: 12/12/22 Time on Monitor: 12:48 Date off Monitor: 12/12/22 Time off Monitor: 13:25 Total Time on Monitor: 37 NST Interventions: PO Hydration NST Evaluation Patient States Movement: Present FHR Baseline: 130 Variability: Moderate 6-25 bpm Accelerations: 15x15 Decelerations: None NST Results: Reactive Note Ultrasound Done: N/A. NST Note Note: Cvx closed/thick, vtx -4 intact membranes Keep next appt, Imodium for diarrhea NST Reviewed and Verified by: Shirley Ramirez
[2022-12-12 13:54] VITALS: BP 119/70; PULSE 68; TEMP 36.5
== END 2022-12-12 13:35 | disposition home or self-care (01) ==
LOC: BCD 12:15 → OBS 12:56
PROVIDERS: PCP Nurse Practitioner Family; Visit Provider Advanced Practice Midwife
DX: R19.7 Diarrhea, unspecified (principal); O26.893 Other specified pregnancy related conditions, third trimester; O47.03 False labor before 37 completed weeks of gestation, third trimester; Z3A.34 34 weeks gestation of pregnancy
CPT/HCPCS: 59025

== ENCOUNTER 2022-12-27 15:02 | Outpatient (REF) | payer BC, SELFPAY ==
[2022-12-27 17:43] LABS: *AMPHETAMINES SCREEN URINE Negative (Negative); *BARBITURATES SCREEN URINE Negative (Negative); *BENZODIAZEPINES SCREEN URINE Negative (Negative); Cannabinoids THC Negative (Negative); Cocaine Screen,Urine Negative (Negative); METHADONE URINE SCREEN Negative (Negative); OPIATES URINE SCREEN Negative (Negative)
[2022-12-27 17:44] LABS: Tricyclic Antidepressants Negative (Negative)
[2023-01-03 18:01] LABS: Buprenorphine Negative ng/mL (Cutoff: 5.0); Norbuprenorphine Negative ng/mL (Cutoff: 2.5)
== END 2022-12-27 15:03 | disposition home or self-care (01) ==
LOC: LBN 15:02
PROVIDERS: PCP Nurse Practitioner Family; Visit Provider Advanced Practice Midwife
DX: Z34.93 Encounter for supervision of normal pregnancy, unspecified, third trimester (principal); Z36.85 Encounter for antenatal screening for Streptococcus B; Z3A.36 36 weeks gestation of pregnancy
CPT/HCPCS: 80307; 80348; 87081

== ENCOUNTER 2023-01-06 00:25 | Inpatient (IN) | payer BC, SELFPAY ==
[2023-01-05 23:58] VITALS: BP 141/89; PULSE 73; RESP 22
[2023-01-06] VITALS (8 sets, daily range): BP systolic 109–130; BP diastolic 55–79; PULSE 52–73; RESP 18; TEMP 36.6–36.7; O2SAT 99
--- NOTE | 2023-01-06 00:28 | HPE_ITS ---
Date of service: 01/06/23 Time of Service: 23:55 Assessment and Plan Assessment and plan (1) Uterine contractions: Status: Acute Assessment and plan: A: 27 yo @ 37+5 wks Spontaneous labor, delivery imminent GBS neg P: Admit to , shortly OB-HPI Labor/Delivery History of Present Illness Reason for Visit: Term labor Chief Complaint: Uterine Contractions (all day, becoming stronger gradually, no ROM, no bleeding, once she got in the car to come to the hospital the contractions suddenly increased to strength and pressure.). DENILSON Calculator Estimated Delivery Date Method WG Current Estimate 01/22/23 Ultrasound #1 Other Estimates 01/14/23 LMP (Certain) Infant Delivery Date-Baby A 01/06/23 37w 5d History of Present Expected Delivery Route/Plan - CNM FOB - Cm Rivera (second child) Does not wish to know gender, circ if boy GBS 12/27 negative Specific Issues/Plan 1. Flu 06/19/21- Tamiflu escribed. 2. Hx migraine SHARP with visual aura 3. Hx IBS, no symptoms right now, no meds, avoids lactose and gluten 4. Panorama-neg, Desires AFP normal risk 5. Varicose vein back of left leg 6. Hgb 9.9 - iron daily recommended. Assessment: History Reviewed & Current Review of Systems Narrative: ROS completed and found to be noncontributory other then HPI PFSH All Active Problems (Updated 01/06/23 @ 00:28 by Shirley Ramirez) Uterine contractions (Acute) Anemia affecting (Acute) Varicose veins during (Acute) (Acute) Positive test (Acute) Medical History (Updated 01/06/23 @ 00:28 by Shirley Ramirez) Acne Contact dermatitis IBS (irritable bowel syndrome) Migraine headache with aura Seasonal allergies Subfertility of couple Family History (Updated 06/28/22 @ 15:00 by Majo Robert CNM) Father Hypertension Mother Hypertension Anemia Maternal Grandmother Endometrial cancer Paternal Grandmother Endometrial cancer Maternal Grandfather Heart disease Social History Smoking risk assessment performed?: No Alcohol Intake: current Alcohol Intake frequency: a few times a month Number of Children: 0 What is your relationship status?: living with partner Panel score (0-1 are the most socially isolated patients): 1 Seatbelt use: always Do you feel safe in your relationship?: Yes Female Reproductive History Menstrual Age of Menarche: 11 Duration of menses: 3-5 days control method: none History History 2 Para 1 Hx # Term Pregnancies 1 Multiple births 0 Hx # Pregnancies 0 Ectopic pregnancies 0 AB induced 0 Hx Number of Living Children 1 AB spontaneous 0 Past Pregnancies Del. Date GA/Weeks # Preg Succ Route Wgt Sex Labor Lgth Anesth esia Location Prov Complic 02/01/21 38 No Yes vaginal 6 lb 1 oz Male 13hrs 26min local [facility]NE[facility] Castellano Delivery Date: 02/01/21 Last Updated by: VERNELL Espinoza Allergies and Home Medications Allergies Allergy/AdvReac Type Severity Reaction Status Date / Time No Known Allergies Allergy Verified 01/03/23 13:45 Home Medications Medication Instructions Recorded Confirmed Type prenat.vits,liu,btx-ylxo-qemzo 1 tab PO DAILY 03/24/20 12/20/22 History pantoprazole 40 mg tablet,delayed 40 mg PO DAILY #30 tabs 08/08/22 12/20/22 Rx release (Protonix) ondansetron HCl 4 mg tablet 4 mg PO Q6H PRN nausea and 09/03/22 12/20/22 Rx vomiting #30 tabs ferrous sulfate 325 mg (65 mg 325 mg PO DAILY #30 tabs 12/27/22 12/27/22 Rx iron) tablet (Feosol) Exam Physical Exam Vital Signs Reviewed: Yes Constitutional Constitutional: moderate distress, average body habitus and cooperative Detailed Labor and Delivery Exam Dilation: 10 station: +3 (with large forebag) Amniotic Membrane Status: Intact Contraction Frequency(min): q 2 min Contraction Intensity: Strong Fetus A Heart Rate Baseline: 130 Monitor Accelerations: Present Monitor Decelerations: Early Variability: Moderate (6-25 BPM) Categories: Category I Est. Weight: 5 lb 11.712 oz Est. Weight: 2600 gms Date of Membrane Rupture: 01/06/23 Time of Membrane Rupture: 00:05 (AROM for clear fluid as forebag ) HEENT Exam HEENT Exam: Normal Neck Exam Neck Exam: Normal Chest/Brest/Axilla Exam Chest Exam: Normal Breast Exam Breast Exam: Not Done Respiratory Exam Respiratory Exam: Normal Cardiovascular Exam Cardiovascular Exam: Normal Abdominal Exam Abdominal Exam: Normal (Gravid and nontender) Rectal Exam Rectal Exam: Normal Exam Exam: Normal Extremities Exam Extremities Exam: Normal Back/Spine/Pelvis Exam Back Exam: Normal Pelvis Adequate: Yes Skin Exam Skin Exam: Normal Neurological Exam Neurological Exam: Normal Psychiatric Exam Psychiatric Exam: Normal Results Results Group Beta Strep: Negative Blood Type: O+ Rubella Status: Immune Varicella Immunity: Immune Risk Assessment Risk for Shoulder Dystocia Historical/Initial OB: NEGATIVE FOR: Pelvic Abnormality, Pre- BMI>30, Previous Shoulder Dystocia or Previous Macrosomia 36 Weeks: NEGATIVE FOR: Current Gestational DM, EFW>4500gms or Maternal Weight Gain>40lbs Increased Risk?: No Delivery Plan @ 36wks: NVD Risk for Pre-Eclampsia Yes, if one or more: NEGATIVE FOR: Hx Pre-E/Gest HTN, Chronic HTN, Multiple Gestation, Pre-gestational DM, Renal Disease, Systemic Lupus or APA Syndrome Yes, if 2 or more: NEGATIVE FOR: Nulliparity, Age>= 35 yrs, >10yr btwn pregnancies, BMI>30, ethinicty, Mother/Sister w/ Pre-E or Previous IUGR Risk for Post- Hemorrhage Initial: NEGATIVE FOR: Multiple Gestation, Previous PPH, Known Clotting Deficiency, Grand Multiparity or Anticoagulation 36 Weeks: NEGATIVE FOR: Anemia, hgb<10, Low platelets(thrombocytopenia), Gestational HTN or Pre-E, Polyhydraminios or EFW>4500gms At Risk?: No Counseled re: Active Management: Yes Risks Reviewed Risks Reviewed Upon Admission: Yes
--- NOTE | 2023-01-06 00:37 | OBVDS_ITS ---
Date of service: 01/06/23 Time of Service: 00:37 OB Labor/ Delivery Information Baby A Delivery Delivery Method: Spontaneaous Presentation: Cephalic Cephalic Position: Vertex Vertex Position: Left Occipital Anterior Cord Description-Baby A: 3 Vessels (short cord) Amniotic Fluid: Clear Estimated Blood Loss: 100 Delivery Outcome: Liveborn Transferred: Remains with Mother Note: Pt arrived 20 minutes after calling in to say her contractions were strong and painful, was offered w/c to get upstairs to the but declined preferring to walk instead, began involuntarily pushing upon lying down on the bed, CNM arrived in room to find BBOW at introitus with vtx +3, FHT 125, AROM for clear fluid with on next contraction of a vigorous female infant over intact perineum, cord was rather short so was placed on maternal abdomen for drying and stimulation, cord was clamped and cut by FOB at 2 minutes of age, Pitocin 10 units given IM, Wood placenta delivered intact with 3VC, cord blood collected. Vulva, vagina and cvx inspected and without laceration, fundus firm below umbilicus, strong family bonding observed, Apgars 9/9, weight 2460 gms. Providers Nurse Non Morse Intercept Technician: Shirley Ramirez Nurse: Lizz Miranda Nurse: Fang Lamar Labor/Delivery Information Number of Babies in Womb: 1 Steroids Given: None Group Beta Strep: Negative Rubella Status: Immune Blood Type: O+ Varicella Immunity: Immune Maternal Complications: None Shoulder Dystocia: No Stages of Labor Onset of Labor Date: 01/05/23 Onset of Labor Time: 22:00 Complete Dilatation Date: 01/06/23 Complete Dilatation Time: 00:00 Labor - Stage 1 Duration: 2 hours and 0 minutes ROM Baby A: 01/06/23 ROM Baby A: 00:05 (AROM for clear fluid as forebag ) ROM Total Time- Baby A: [id number] Infant Delivery Date-Baby A: 01/06/23 Infant Delivery Time-Baby A: 00:08 Labor Stage 2 Duration: 8 minutes Placenta Delivery Date-Baby A: 01/06/23 Placenta Delivery Time-Baby A: 00:13 Labor-Stage 3 Duration: 5 minutes Total Length of Labor-Baby A: 2 hours and 8 minutes Placenta Cultured: No Placenta Status: Delivered Baby A Gender: Female Gestational Status: Postterm (>42 wks) Gestational Age in Weeks/Days: 42 Weeks and 1 Days weight: 5 lb 6.774 oz Weight Comment: 2460 gms Length-Baby A: 19.5 in Score-1 Minute Interval(Baby A) Heart Rate-1 minute: 100 BPM or Greater Respiratory Effort- 1 minute: Spontaneous/Strong Cry Muscle Tone-1 minute: Active Movement Reflex Response-1 minute: Prompt Response Color-1 minute: Bluish Hands or Feet Total Score-1 minute: 9 Score-5 Minute Interval(Baby A) Heart Rate- 5 minute: 100 BPM or Greater Respiratory Effort-5 minute: Spontaneous/Strong Cry Muscle Tone-5 minute: Active Movement Reflex Response-5 minute: Prompt Response Color-5 minute: Bluish Hands or Feet Total Score- 5 minute: 9 Procedure Procedures: Cord Blood Collection
[2023-01-06 00:49] LABS: HCT 33.8 % (36.0-46.0); HGB 11.4 g/dL (11.2-15.7); MCH 28.6 pg (27.0-33.0); MCHC 33.7 % (32.0-36.0); MCV 85 fL (80-95); MPV 9.1 fL (8.0-11.0); Platelet Count 278 10^3/uL (130-400); RBC 3.99 10^6/uL (3.93-5.22); RDW 13.1 % (11.7-14.6); RDW-SD 38.7 fL; WBC 9.83 10^3/uL (4.4-10.8)
[2023-01-06] MEDS: Acetaminophen 325 MG TAB 650 MG PO ×2 (11:32→21:08)
[2023-01-06] MEDS: Ibuprofen 600 MG TAB PO ×2 (15:27→21:07)
[2023-01-07] MEDS: Ibuprofen 600 MG TAB PO ×2 (02:59→21:23)
[2023-01-07] MEDS: Acetaminophen 325 MG TAB 650 MG PO (02:59)
--- NOTE | 2023-01-07 07:22 | W.PM.OBPNV1 ---
Date of service: 01/07/23 Time of Service: : Assessment and Plan Assessment and plan (1) Term delivered: Status: Acute Assessment and plan: A: PPD #1, nml recovery off to a good start Satisfied with experience P: Will discharge home today at pt request F/up at 2 & 6 wk Plans POP's as BCM Written instructions reviewed and given to pt Subjective Subjective Patient comments: No complaints, Pain well controlled, Tolerating diet and Bowel Movement Patient's Mood: tired, happy [place] baby status: Doing well, Nursing well, Rooming in and Strong Bonding Observed feeding status: Exclusively breast feeding Exam Physical Exam Vital signs: Temp Pulse Resp BP Pulse Ox 97.8 F 64 18 109/71 99 01/06/23 19:00 01/06/23 19:00 01/06/23 19:00 01/06/23 19:00 01/06/23 08:01 Vital Signs Reviewed: Yes Constitutional Constitutional: no acute distress, average body habitus and cooperative HEENT Exam HEENT Exam: Normal Neck Exam Neck Exam: Normal Breast Exam Bilateral: Breast Exam: Normal and Soft Nipple Exam: Normal and Uninjured Respiratory Exam Respiratory Exam: Normal Cardiovascular Exam Cardiovascular Exam: Normal Abdominal Exam Abdomen: Other (soft, nontender) Fundal Exam Fundus: Below Umbilicus and Firm Rectal Exam Rectal Exam: Normal Exam Patient deferred: external exam Perineum: Intact Extremities Exam Extremity Exam: Normal, Full ROM and Warm to Touch Back/Spine/Pelvis Exam Back Exam: Normal Skin Exam Skin Exam: Normal Neurological Exam Neurological Exam: Normal Psychiatric Exam Psychiatric Exam: Normal
--- NOTE | 2023-01-07 07:29 | DSE_ITS ---
Date of service: 01/07/23 Time of Service: 07:29 DS: Diagnosis Discharge Diagnosis (1) Term delivered: Status: Acute Discharge Plan Disposition Patient Disposition: Home Condition: Good Discharge Details Reason For Visit: Term labor Admit Date/Time: 01/05/23 23:58 Admit Provider: Shirley Ramirez Attending Provider: Shirley Ramirez Primary Care Provider: Haley Matthews Hospital Course Hospital Course: , pt desires discharge on first day Home Meds and New Rx's Prescriptions: No Action prenat.vits,liu,pff-iedq-odprh Tablet 1 tab PO DAILY ferrous sulfate [Feosol] 325 mg (65 mg iron) tablet 325 mg PO DAILY Qty: 30 0RF Discharge Instructions Additional Instructions: Please keep your 2 & 6 wk appointments with the bench boring machine operator, call for any and all concerns. Stand Alone Forms: BC Instructions, BC Post Vaginal Deliver Activity:: Activity as Tolerated Equipment/Supplies:: No Equipment Needed Diet:: Normal Diet OB:DS Summary Summary Vaginal Delivery Method: Spontaneaous Episiotomy Description: None Laceration Description: None Laceration Extension: N/A Contraception Discussed Contraception Discussed: Yes Contraceptive Plan: Control Pill/Patch, Infant Gender-Baby A: Female weight: 5 lb 6.774 oz Status at Discharge Functional status at discharge: independent ambulation Overall status at discharge: patient is progressing back to baseline Mental Status: mental status grossly normal Speech and Movement: speech and movement normal and speech clear Mood: congruent mood Affect: normal affect Exam Physical Exam Vital signs: Temp Pulse Resp BP Pulse Ox 97.8 F 64 18 109/71 99 01/06/23 19:00 01/06/23 19:00 01/06/23 19:00 01/06/23 19:00 01/06/23 08:01 Constitutional Constitutional: no acute distress, average body habitus and cooperative HEENT Exam HEENT Exam: Normal Neck Exam Neck Exam: Normal Breast Exam Bilateral: Breast Exam: Normal and Soft Respiratory Exam Respiratory Exam: Normal Cardiovascular Exam Cardiovascular Exam: Normal Abdominal Exam Abdomen: Other (soft, nontender) Fundal Exam Fundus: Below Umbilicus and Firm Rectal Exam Rectal Exam: Normal Exam Patient deferred: external exam Perineum: Intact Extremities Exam Extremity Exam: Normal, Full ROM and Warm to Touch Back/Spine/Pelvis Exam Back Exam: Normal Skin Exam Skin Exam: Normal Neurological Exam Neurological Exam: Normal Psychiatric Exam Psychiatric Exam: Normal PFSH All Active Problems (Updated 01/07/23 @ 07:25 by Shirley Ramirez) Term delivered (Acute) Medical History (Updated 01/07/23 @ 07:25 by Shirley Ramirez) Acne Anemia affecting Contact dermatitis IBS (irritable bowel syndrome) Migraine headache with aura Positive test Seasonal allergies Subfertility of couple Uterine contractions Varicose veins during Family History (Updated 06/28/22 @ 15:00 by Majo Robert CNM) Father Hypertension Mother Hypertension Anemia Maternal Grandmother Endometrial cancer Paternal Grandmother Endometrial cancer Maternal Grandfather Heart disease Social History Smoking risk assessment performed?: No Alcohol Intake: current Alcohol Intake frequency: a few times a month Number of Children: 0 What is your relationship status?: living with partner Panel score (0-1 are the most socially isolated patients): 1 Seatbelt use: always Do you feel safe in your relationship?: Yes Female Reproductive History Menstrual Age of Menarche: 11 Duration of menses: 3-5 days control method: none History History 2 Para 1 Hx # Term Pregnancies 1 Multiple births 0 Hx # Pregnancies 0 Ectopic pregnancies 0 AB induced 0 Hx Number of Living Children 1 AB spontaneous 0 Past Pregnancies Del. Date GA/Weeks # Preg Succ Route Wgt Sex Labor Lgth Anesth esia Location [facility] 02/01/21 38 No Yes vaginal 6 lb 1 oz Male 13hrs 26min local [facility] Delivery Date: 02/01/21 Last Updated by: VERNELL Espinoza DS: Data Vitals/I&O Vitals and I&O: Vital Signs Temperature 97.8 F 01/06/23 19:00 Temperature Source Oral 01/06/23 19:00 Pulse 64 01/06/23 19:00 Pulse Rhythm Regular 01/06/23 19:00 Respiratory Rate 18 01/06/23 19:00 Respiratory Depth Normal 01/06/23 19:00 Blood Pressure 109/71 01/06/23 19:00 Blood Pressure Mean 83 01/06/23 19:00 Pulse Oximetry 99 01/06/23 08:01 Oxygen Delivery Method Room Air 01/05/23 23:58 Oxygen Flow Rate 0 01/05/23 23:58 Pain Level 2 01/06/23 19:00 Intake & Output 01/06/23 01/06/23 01/07/23 11:59 23:59 11:59 Output Total 1100 / 1100 Balance -1100 / -1100 Output: Urine 1100 / 1100 Other: Urine Color Yellow Yellow
[2023-01-07 07:42] VITALS: BP 114/76; PULSE 61; RESP 18; TEMP 36.7; O2SAT 99
[2023-01-08 00:30] VITALS: BP 115/72; PULSE 65; RESP 18; TEMP 36.7
--- NOTE | 2023-01-08 06:30 | OBPPV_ITS ---
Date of service: 01/08/23 Time of Service: 06:30 Assessment and Plan Assessment and plan (1) Term delivered: Status: Acute Assessment and plan: A: PPD#2, nml recovery well P: Discharge delayed due to not passing carseat/bed challenge yesterday Will discharge to home today or to boarder status Discharge teaching reinforced F/up @ 2 & 6 wks Subjective Subjective Patient comments: No complaints, Pain well controlled, Tolerating diet and Flatus present Patient's Mood: feeling well, wishing to go home as soon as is released baby status: Doing well, Nursing well, Rooming in and Strong Bonding Observed [place] feeding status: Exclusively breast feeding Exam Physical Exam Vital signs: Temp Pulse Resp BP Pulse Ox 98.1 F 65 18 115/72 99 01/08/23 00:30 01/08/23 00:30 01/08/23 00:30 01/08/23 00:30 01/07/23 07:42 Vital Signs Reviewed: Yes Constitutional Constitutional: no acute distress, average body habitus and cooperative HEENT Exam HEENT Exam: Normal Neck Exam Neck Exam: Normal Breast Exam Bilateral: Breast Exam: Normal and Soft Respiratory Exam Respiratory Exam: Normal Cardiovascular Exam Cardiovascular Exam: Normal Abdominal Exam Abdomen: Other (soft, nontender) Fundal Exam Fundus: Below Umbilicus and Firm Rectal Exam Rectal Exam: Normal Exam Patient deferred: external exam Perineum: Intact Extremities Exam Extremity Exam: Normal, Full ROM and Warm to Touch Back/Spine/Pelvis Exam Back Exam: Normal Skin Exam Skin Exam: Normal Neurological Exam Neurological Exam: Normal Psychiatric Exam Psychiatric Exam: Normal
[2023-01-08] MEDS: Ibuprofen 600 MG TAB PO (08:05)
[2023-01-08 08:07] VITALS: BP 110/74; PULSE 61; RESP 18; TEMP 36.7; O2SAT 100
== END 2023-01-08 10:45 | disposition home or self-care (01) | DRG 806 ==
PROVIDERS: Admitting Provider Advanced Practice Midwife; PCP Nurse Practitioner Family; Visit Provider Advanced Practice Midwife
DX: O80 Encounter for full-term uncomplicated delivery (principal); O99.354 Diseases of the nervous system complicating childbirth; Z37.0 Single live birth; Z3A.37 37 weeks gestation of pregnancy; D64.9 Anemia, unspecified; O87.4 Varicose veins of lower extremity in the puerperium; I83.92 Asymptomatic varicose veins of left lower extremity; O99.02 Anemia complicating childbirth; K58.9 Irritable bowel syndrome, unspecified; G43.109 Migraine with aura, not intractable, without status migrainosus
CPT/HCPCS: 36415; 85027; 86850; 86900; 86901

== ENCOUNTER 2023-02-18 13:13 | Outpatient (REF) | payer BC, SELFPAY ==
--- NOTE | 2023-02-18 12:00 | PAPFT_PTH ---
PATIENT: Kathy Rivera LOC: [facility] U#:[id number] AGE/SX: 27/F ROOM: RE02/18/[address]: Majo Robert : 1995 BED: DIS: 02/18/2023 SPEC #: [id number] RECD: 02/18/23 13:24 STATUS: OBIE REEladio #: [id number] MADINA: 02/18/23 12:[address]: Majo Robert DEPT: [facility] Cytology RECD BY: Hanane Newsome ENTERED: 02/18/23 13:24 SP TYPE: PAPFT KATHERINE DR: Haley Matthews Tissues: 1 - CX/ENDOCX FOR PAP SMEARS Procedures: PAP THIN PREP/UVM Screening Comments: [id number]
== END 2023-02-18 13:14 | disposition home or self-care (01) ==
LOC: LBN 13:13
PROVIDERS: PCP Nurse Practitioner Family; Visit Provider Advanced Practice Midwife
DX: Z12.4 Encounter for screening for malignant neoplasm of cervix (principal)
CPT/HCPCS: 88142

== ENCOUNTER 2023-12-29 16:50 | Outpatient (REF) | payer BC, SELFPAY | END 2023-12-29 16:51 | disposition home or self-care (01) | LOC: LBN 16:50 | PROVIDERS: PCP Nurse Practitioner Family; Visit Provider Physician Assistant | DX: N39.0 Urinary tract infection, site not specified (principal) | CPT/HCPCS: 87077; 87086; 87186 ==

== ENCOUNTER 2025-02-25 03:15 | Outpatient (CLI) | payer OTHER, SELFPAY ==
[2025-02-25 14:50] LABS: Abs Immature Grans 0.03 10^3/uL (0.0-0.06); HCT 36.9 % (36.0-46.0); HGB 13.2 g/dL (11.2-15.7); Immature Grans % 0.3 %; MCH 31.2 pg (27.0-33.0); MCHC 35.8 % (32.0-36.0); MCV 87 fL (80-95); MPV 9.6 fL (8.0-11.0); Platelet Count 317 10^3/uL (130-400); RBC 4.23 10^6/uL (3.93-5.22); RDW 11.9 % (11.7-14.6); RDW-SD 38.1 fL; WBC 9.36 10^3/uL (4.4-10.8)
[2025-02-28 08:59] LABS: HIV-1/2 Ag & Ab Screen Negative (Negative)
[2025-02-28 11:24] LABS: Hepatitis C Ab w Rflx HCV PCR Negative (Negative)
[2025-02-28 11:39] LABS: Rubella IgG Ab (UVM) Positive (See Note)
[2025-02-28 20:48] LABS: Syphilis IgG w/Reflex Nonreactive (Nonreactive)
== END 2025-02-25 03:16 | disposition home or self-care (01) ==
LOC: LBO 03:15
PROVIDERS: PCP Nurse Practitioner Family; Visit Provider Advanced Practice Midwife
DX: Z34.91 Encounter for supervision of normal pregnancy, unspecified, first trimester (principal)
CPT/HCPCS: 36415; 86787; 86803; 86850; 86900; 86901; 87340; 87389; 85025; 86762; 86780

== ENCOUNTER 2025-02-25 15:15 | Outpatient (REF) | payer OTHER, SELFPAY ==
[2025-02-25 17:26] LABS: Cannabinoids THC Negative (Negative); METHADONE URINE SCREEN Negative (Negative)
[2025-02-28 11:20] LABS: Chlamydia Result Negative (Negative); GC Result Negative (Negative)
== END 2025-02-25 15:16 | disposition home or self-care (01) ==
LOC: LBN 15:15
PROVIDERS: PCP Nurse Practitioner Family; Visit Provider Advanced Practice Midwife
DX: Z34.91 Encounter for supervision of normal pregnancy, unspecified, first trimester
CPT/HCPCS: 80307; 80348; 87491; 87591